=== PATIENT | male | born 1950 | race Caucasian/White ===

== ENCOUNTER 2020-02-02 08:22 | Inpatient (IN) | payer MEDICARE ==
[~2020-02-02] VITALS: Ht 182.9 cm; Wt 94.1 kg
--- NOTE | 2020-02-02 08:30 | NUR ---
pa-c is at the bedside for aSSESSMENT.
[2020-02-02] MEDS ORDERED: ONDANSETRON 2MG/ML, 2ML ONE ×2 (08:56→11:55)
[2020-02-02] MEDS ORDERED: MORPHINE SULFATE 4 MG/ML, 1ML ONE ×2 (08:56→14:32)
[2020-02-02] MEDS ORDERED: SODIUM CHLORIDE FLUSH 10ML SYR IVF ONE (09:00)
[2020-02-02] MEDS ORDERED: SODIUM CHLORIDE 0.9% 1,000ML IVBOLUS ONE (09:00)
[2020-02-02] MEDS ORDERED: THIAMINE 100 MG in SODIUM CHLORIDE 0.9% 50 ML IVPB ONE (09:00)
[2020-02-02] MEDS ORDERED: MORPHINE SULFATE 4 MG/ML, 1ML IVPush ONE (09:00)
[2020-02-02] MEDS ORDERED: ONDANSETRON 2MG/ML, 2ML IVPush ONE ×2 (09:00→12:00)
[2020-02-02 09:13] LABS: BASOPHILS % (AUTO) 1 % (0-1); EOSINOPHILS % (AUTO) 0 % (1-7); LYMPHOCYTES % (AUTO) 4 % (22-44); MEAN CORPUSCULAR HEMOGLOBIN 32.4 pg (27.5-34.5); MEAN CORPUSCULAR HGB CONC 34.4 g/dL (33.2-36.2); MEAN PLATELET VOLUME 8.3 fL (7.4-10.4); MONOCYTES % (AUTO) 7 % (2-9); NEUTROPHILS % (AUTO) 88 % (42-75); PLATELET COUNT 177 x10^3/uL (130-400); RED BLOOD COUNT 4.69 x10^6/uL (4.38-5.82); RED CELL DISTRIBUTION WIDTH 15.5 % (9.4-14.8)
[2020-02-02 09:14] LABS: MD NO
[2020-02-02 09:22] LABS: ALANINE AMINOTRANSFERASE 38 U/L (12-78); ALBUMIN 3.9 g/dL (3.4-5.0); ANION GAP 10 mmol/L (5-15); CALCIUM 8.8 mg/dL (8.5-10.1); CHLORIDE 99 mmol/L (98-107); CREATININE 1.03 mg/dL (0.7-1.3)
[2020-02-02 09:24] LABS: ALKALINE PHOSPHATASE 63 U/L (45-117); BILIRUBIN,TOTAL 3.4 mg/dL (0.2-1.0); TOTAL PROTEIN 8.4 g/dL (6.4-8.2)
[2020-02-02] MEDS ORDERED: LORazepam 2 MG/ML, 1ML IVPush ONE (10:00)
[2020-02-02] MEDS ORDERED: LORazepam 2 MG/ML, 1ML ONE (10:02)
--- NOTE | 2020-02-02 10:07 | NUR ---
pt to ct w tech
--- NOTE | 2020-02-02 10:48 | NUR ---
PT RETURNED FROM CT. IMAGING WAS UNCOMFORTABLE BUT ACCOMPLISHED. HE IS AWAITNG AN MD TO RECHECK IN REGARD TO CT.
--- NOTE | 2020-02-02 11:55 | NUR ---
pt is vomiting. md is aware
--- NOTE | 2020-02-02 11:58 | NUR ---
hospitalist is at the bedside for assessment/consult.
[2020-02-02] MEDS ORDERED: MAGNESIUM SULFATE/D5W 0 ML ONE (12:16)
[2020-02-02] MEDS ORDERED: PROMETHAZINE 25 MG/ML, 1ML IM PRN (12:30)
[2020-02-02] MEDS ORDERED: hydrALAzine 20 MG/ML, 1ML IVPush PRN (12:30)
[2020-02-02] MEDS ORDERED: DIPHENHYDRAMINE 25 MG CAPSULE PO PRN (12:30)
[2020-02-02] MEDS ORDERED: THIAMINE 200 MG, MVI ADULT 10 ML, FOLIC ACID 1 MG in D5%-0.9% NACL 1,000 ML IV SCH (12:30)
[2020-02-02] MEDS ORDERED: ONDANSETRON 2MG/ML, 2ML IVPush PRN (12:30)
[2020-02-02] MEDS ORDERED: BISACODYL 10 MG SUPP PR PRN (12:30)
[2020-02-02] MEDS ORDERED: LABETALOL 5MG/ML, 20ML IVPush PRN (12:30)
[2020-02-02] MEDS ORDERED: ENOXAPARIN 40 MG/0.4 ML ONE (12:46)
[2020-02-02] MEDS ORDERED: CHLORDIAZEPOXIDE 10 MG CAPSULE ONE (12:47)
[2020-02-02] MEDS: ENOXAPARIN 40 MG/0.4 ML SQ SCH (13:00)
[2020-02-02] MEDS: CHLORDIAZEPOXIDE 10 MG CAPSULE PO SCH ×3 (13:00→21:42)
[2020-02-02 13:27] LABS: CHLORIDE 102 mmol/L (98-107)
[2020-02-02 13:36] LABS: ALANINE AMINOTRANSFERASE 36 U/L (12-78); ALBUMIN 3.6 g/dL (3.4-5.0); ALKALINE PHOSPHATASE 55 U/L (45-117); ANION GAP 8 mmol/L (5-15); CALCIUM 8.5 mg/dL (8.5-10.1); CREATININE 0.82 mg/dL (0.7-1.3); TOTAL PROTEIN 7.7 g/dL (6.4-8.2)
--- NOTE | 2020-02-02 14:22 | NUR ---
SARA (RN) IS ASSUMING CARE OF THIS PT WHUILE I HAVE A LUNCH BREAK. SBAR WAS EXCHANGED AT THE BEDSIDE.
[2020-02-02] MEDS: morphine SULFATE 10 MG/ML, 1ML IVPush PRN ×2 (14:34→21:33)
--- NOTE | 2020-02-02 14:39 | NUR ---
BREAK RN: PT TRANSPORTED TO HOSPITAL BED W/ ASSISTANCE FROM 2 ED TECHS. PT MEDICATED FOR 10/10 PAIN. PT HYPERTENSIVE, OTHER VS WDL. RESP EVEN AND UNLABORED, NADN.
--- NOTE | 2020-02-02 18:22 | NUR ---
VERBAL SBAR EXCHANGED W SOREN SALAZAR) ON THE FLOOR FOR ADMISSION. WE WILL PREPARE
--- NOTE | 2020-02-02 18:55 | NUR ---
JEAN (RN) IS ASSUMING CARE OF THIS PT AT THIS TIME. SBAR WAS EXCHANGED AT THE BEDSIDE
--- NOTE | 2020-02-02 19:45 | NUR ---
Report from Moises maria. Did not see or evaluate this pt as he was tx to floor.
[2020-02-02 20:09] VITALS: BP 154/85
[2020-02-02] MEDS: FAMOTIDINE 20 MG TABLET PO SCH (21:00)
[2020-02-02] MEDS ORDERED: FAMOTIDINE 40 MG TABLET ONE ×2 (21:25→21:53)
[2020-02-03 01:00] VITALS: BP 151/78
[2020-02-03] MEDS: CHLORDIAZEPOXIDE 10 MG CAPSULE PO SCH ×2 (05:36→11:27)
[2020-02-03 05:40] LABS: BASOPHILS % (AUTO) 1 % (0-1); EOSINOPHILS % (AUTO) 1 % (1-7); LYMPHOCYTES % (AUTO) 11 % (22-44); MEAN CORPUSCULAR HEMOGLOBIN 31.6 pg (27.5-34.5); MEAN CORPUSCULAR HGB CONC 33.4 g/dL (33.2-36.2); MEAN PLATELET VOLUME 8.7 fL (7.4-10.4); MONOCYTES % (AUTO) 11 % (2-9); NEUTROPHILS % (AUTO) 76 % (42-75); PLATELET COUNT 140 x10^3/uL (130-400); RED BLOOD COUNT 4.37 x10^6/uL (4.38-5.82); RED CELL DISTRIBUTION WIDTH 15.6 % (9.4-14.8)
[2020-02-03] MEDS: morphine SULFATE 10 MG/ML, 1ML IVPush PRN (05:41)
[2020-02-03 05:44] LABS: MD NO
[2020-02-03] MEDS ORDERED: SODIUM PHOSPHATE 20 MMOL in SODIUM CHLORIDE 0.9% 500 ML IV ONE (07:00)
[2020-02-03 07:30] VITALS: BP 143/85
[2020-02-03 07:37] LABS: ALANINE AMINOTRANSFERASE 29 U/L (12-78); ALBUMIN 3.1 g/dL (3.4-5.0); ANION GAP 6 mmol/L (5-15); CALCIUM 8.3 mg/dL (8.5-10.1); CHLORIDE 104 mmol/L (98-107)
[2020-02-03 07:40] LABS: ALKALINE PHOSPHATASE 49 U/L (45-117); BILIRUBIN,TOTAL 2.5 mg/dL (0.2-1.0)
[2020-02-03] MEDS ORDERED: FAMOTIDINE 40 MG TABLET ONE ×2 (09:03→20:39)
[2020-02-03] MEDS: SENNA/DOCUSATE TABLET PO SCH (09:10)
[2020-02-03] MEDS: FAMOTIDINE 20 MG TABLET PO SCH ×2 (09:24→20:43)
[2020-02-03] MEDS: OXYcodone IR 5MG TABLET PO PRN ×3 (09:25→20:42)
[2020-02-03] MEDS: CEFTRIAXONE PMX 2GM/50ML 50 ML IVPB SCH (09:40)
[2020-02-03] MEDS ORDERED: FOLIC ACID 1 MG TABLET ONE (12:51)
[2020-02-03] MEDS: LACTATED RINGERS 1,000 ML IV SCH ×2 (12:54→17:40)
[2020-02-03] MEDS: ENOXAPARIN 40 MG/0.4 ML SQ SCH (12:54)
[2020-02-03] MEDS: FOLIC ACID 1 MG TABLET PO SCH (12:54)
[2020-02-03 13:01] VITALS: BP 148/81
[2020-02-03 20:26] VITALS: BP 128/79
[2020-02-03] MEDS: THIAMINE 100MG TABLET PO SCH (20:42)
[2020-02-03] MEDS: MELATONIN 5 MG TABLET PO PRN (22:23)
[2020-02-04] VITALS (14 sets, daily range): BP systolic 86–124; BP diastolic 43–76
[2020-02-04] MEDS: LACTATED RINGERS 1,000 ML IV SCH ×2 (02:18→11:37)
[2020-02-04 05:25] LABS: BASOPHILS % (AUTO) 1 % (0-1); EOSINOPHILS % (AUTO) 6 % (1-7); LYMPHOCYTES % (AUTO) 13 % (22-44); MEAN CORPUSCULAR HEMOGLOBIN 32.2 pg (27.5-34.5); MEAN CORPUSCULAR HGB CONC 33.8 g/dL (33.2-36.2); MEAN PLATELET VOLUME 8.7 fL (7.4-10.4); MONOCYTES % (AUTO) 13 % (2-9); NEUTROPHILS % (AUTO) 68 % (42-75); PLATELET COUNT 123 x10^3/uL (130-400); RED BLOOD COUNT 4.06 x10^6/uL (4.38-5.82); RED CELL DISTRIBUTION WIDTH 15.7 % (9.4-14.8)
[2020-02-04 05:29] LABS: MD NO
[2020-02-04] MEDS: OXYcodone IR 5MG TABLET PO PRN ×2 (05:32→10:30)
[2020-02-04] MEDS: LORazepam 2 MG/ML, 1ML IVPush PRN ×2 (05:32→21:25)
[2020-02-04 05:35] LABS: ALBUMIN 2.9 g/dL (3.4-5.0); ANION GAP 6 mmol/L (5-15); CALCIUM 8.4 mg/dL (8.5-10.1); CHLORIDE 104 mmol/L (98-107)
[2020-02-04 05:40] LABS: ALANINE AMINOTRANSFERASE 31 U/L (12-78); ALKALINE PHOSPHATASE 51 U/L (45-117); BILIRUBIN,TOTAL 1.3 mg/dL (0.2-1.0); TOTAL PROTEIN 6.5 g/dL (6.4-8.2)
[2020-02-04] MEDS ORDERED: DILTIAZEM 125 MG in SODIUM CHLORIDE 0.9% 100 ML IV SCH (06:00)
[2020-02-04] MEDS ORDERED: DILTIAZEM 5 MG/ML, 5ML IVPush ONE ×4 (06:00→09:30)
[2020-02-04] MEDS ORDERED: POTASSIUM CHLORIDE 20 MEQ TAB.ER.PRT PO ONE (07:00)
[2020-02-04] MEDS ORDERED: LACTATED RINGERS 500 ML IVBOLUS ONE (07:30)
[2020-02-04 08:47] LABS: TROPONIN I < 0.015 ng/mL (0.000-0.045)
[2020-02-04] MEDS ORDERED: OMNIPAQUE 350 MG/ML, 75ML BOTTLE ONE (08:49)
[2020-02-04] MEDS ORDERED: FAMOTIDINE 40 MG TABLET ONE ×2 (08:58→19:28)
[2020-02-04] MEDS: FAMOTIDINE 20 MG TABLET PO SCH ×2 (09:00→19:32)
[2020-02-04] MEDS: FOLIC ACID 1 MG TABLET PO SCH (09:10)
[2020-02-04] MEDS: THIAMINE 100MG TABLET PO SCH ×2 (09:10→19:32)
[2020-02-04] MEDS: SENNA/DOCUSATE TABLET PO SCH (09:10)
[2020-02-04] MEDS: CEFTRIAXONE PMX 2GM/50ML 50 ML IVPB SCH ×2 (09:10→11:30)
[2020-02-04] MEDS ORDERED: METOPROLOL TARTRATE 25 MG TAB PO SCH (09:30)
[2020-02-04] MEDS ORDERED: DILTIAZEM 5 MG/ML, 5ML IVPush PRN ×2 (10:00→16:00)
[2020-02-04] MEDS: METOPROLOL TARTRATE 25 MG TAB PO SCH ×3 (12:02→19:35)
[2020-02-04] MEDS: ENOXAPARIN 40 MG/0.4 ML SQ SCH (12:02)
[2020-02-04 13:40] LABS: TROPONIN I < 0.015 ng/mL (0.000-0.045)
[2020-02-04 19:26] LABS: TROPONIN I < 0.015 ng/mL (0.000-0.045)
[2020-02-04] MEDS ORDERED: LORazepam 2 MG/ML, 1ML IV PRN ×4 (22:00)
[2020-02-04] MEDS ORDERED: LORazepam 0.5MG TABLET PO PRN (22:00)
[2020-02-04] MEDS ORDERED: LORazepam 1MG TABLET PO PRN ×4 (22:00)
[2020-02-04] MEDS: LORazepam 2 MG/ML, 1ML IV PRN (23:51)
[2020-02-05 00:42] VITALS: BP 122/59
[2020-02-05] MEDS: HALOPERIDOL 5 MG/ML IM PRN ×2 (00:42→20:50)
[2020-02-05] MEDS: LORazepam 2 MG/ML, 1ML IV PRN ×2 (03:28→04:48)
[2020-02-05] MEDS: METOPROLOL TARTRATE 25 MG TAB PO SCH ×6 (03:37→20:55)
[2020-02-05] MEDS: LACTATED RINGERS 1,000 ML IV SCH (05:08)
[2020-02-05 05:31] LABS: BASOPHILS % (AUTO) 1 % (0-1); EOSINOPHILS % (AUTO) 1 % (1-7); LYMPHOCYTES % (AUTO) 10 % (22-44); MEAN CORPUSCULAR HEMOGLOBIN 31.9 pg (27.5-34.5); MEAN CORPUSCULAR HGB CONC 33.5 g/dL (33.2-36.2); MEAN PLATELET VOLUME 9.3 fL (7.4-10.4); MONOCYTES % (AUTO) 16 % (2-9); NEUTROPHILS % (AUTO) 74 % (42-75); PLATELET COUNT 139 x10^3/uL (130-400); RED CELL DISTRIBUTION WIDTH 15.9 % (9.4-14.8)
[2020-02-05 05:40] LABS: ANION GAP 6 mmol/L (5-15); CALCIUM 8.9 mg/dL (8.5-10.1); CHLORIDE 107 mmol/L (98-107)
[2020-02-05 05:44] LABS: ALANINE AMINOTRANSFERASE 36 U/L (12-78); ALKALINE PHOSPHATASE 57 U/L (45-117); BILIRUBIN,TOTAL 1.1 mg/dL (0.2-1.0); CREATININE 0.87 mg/dL (0.7-1.3); TOTAL PROTEIN 6.8 g/dL (6.4-8.2)
[2020-02-05] MEDS ORDERED: DILTIAZEM 125 MG in SODIUM CHLORIDE 0.9% 100 ML IV SCH (06:00)
[2020-02-05 06:31] LABS: MD SCAN
[2020-02-05 07:40] VITALS: BP 143/80
[2020-02-05] MEDS: FAMOTIDINE 20 MG TABLET PO SCH ×3 (09:00→20:56)
[2020-02-05] MEDS ORDERED: CHLORDIAZEPOXIDE 25 MG CAPSULE PO PRN (09:00)
[2020-02-05] MEDS ORDERED: FAMOTIDINE 40 MG TABLET ONE ×2 (09:55→20:43)
[2020-02-05] MEDS: SENNA/DOCUSATE TABLET PO SCH (09:59)
[2020-02-05] MEDS: FOLIC ACID 1 MG TABLET PO SCH (10:00)
[2020-02-05] MEDS: OXYcodone IR 5MG TABLET PO PRN (10:00)
[2020-02-05] MEDS: POTASSIUM CHLORIDE 20 MEQ, MAGNESIUM SULFATE 1 GM, MVI ADULT 10 ML, THIAMINE 200 MG, FO... IV SCH (10:26)
[2020-02-05] MEDS: CEFTRIAXONE PMX 2GM/50ML 50 ML IVPB SCH (11:38)
[2020-02-05] MEDS ORDERED: ZIPRASIDONE 20 MG INJ IM ONE ×3 (12:47→14:00)
[2020-02-05] MEDS ORDERED: CHLORDIAZEPOXIDE 25 MG CAPSULE ONE (12:47)
[2020-02-05] MEDS: ENOXAPARIN 40 MG/0.4 ML SQ SCH (12:52)
[2020-02-05] MEDS: CHLORDIAZEPOXIDE 25 MG CAPSULE PO SCH ×5 (12:53→20:56)
[2020-02-05 13:25] VITALS: BP 159/90
[2020-02-05] MEDS: LORazepam 2 MG/ML, 1ML IVPush PRN ×2 (14:33→21:01)
[2020-02-05 19:47] VITALS: BP 111/72
[2020-02-06] MEDS: LORazepam 2 MG/ML, 1ML IVPush PRN (00:34)
[2020-02-06 00:45] VITALS: BP 137/87
[2020-02-06] MEDS: METOPROLOL TARTRATE 25 MG TAB PO SCH ×3 (03:58→21:52)
[2020-02-06 07:30] VITALS: BP 144/89
[2020-02-06] MEDS: CHLORDIAZEPOXIDE 25 MG CAPSULE PO SCH ×4 (07:43→21:52)
[2020-02-06 08:59] LABS: BASOPHILS % (AUTO) 1 % (0-1); EOSINOPHILS % (AUTO) 4 % (1-7); LYMPHOCYTES % (AUTO) 10 % (22-44); MEAN CORPUSCULAR HEMOGLOBIN 32.4 pg (27.5-34.5); MEAN CORPUSCULAR HGB CONC 33.8 g/dL (33.2-36.2); MEAN PLATELET VOLUME 8.3 fL (7.4-10.4); MONOCYTES % (AUTO) 14 % (2-9); NEUTROPHILS % (AUTO) 71 % (42-75); PLATELET COUNT 148 x10^3/uL (130-400); RED BLOOD COUNT 4.05 x10^6/uL (4.38-5.82); RED CELL DISTRIBUTION WIDTH 16.2 % (9.4-14.8)
[2020-02-06] MEDS: FAMOTIDINE 20 MG TABLET PO SCH ×2 (09:00→21:52)
[2020-02-06 09:06] LABS: ALANINE AMINOTRANSFERASE 40 U/L (12-78); ALBUMIN 2.9 g/dL (3.4-5.0); ANION GAP 7 mmol/L (5-15); CALCIUM 8.5 mg/dL (8.5-10.1); CHLORIDE 106 mmol/L (98-107); CREATININE 0.84 mg/dL (0.7-1.3)
[2020-02-06 09:07] LABS: MD NO
[2020-02-06 09:10] LABS: ALKALINE PHOSPHATASE 49 U/L (45-117); BILIRUBIN,TOTAL 1.6 mg/dL (0.2-1.0); TOTAL PROTEIN 6.7 g/dL (6.4-8.2)
[2020-02-06] MEDS: PIPERACILLIN/TAZO/PMX 3.375GM 50 ML IV SCH ×3 (09:52→21:52)
[2020-02-06] MEDS ORDERED: FAMOTIDINE 40 MG TABLET ONE (10:07)
[2020-02-06] MEDS: SENNA/DOCUSATE TABLET PO SCH (10:10)
[2020-02-06] MEDS: FOLIC ACID 1 MG TABLET PO SCH (10:11)
[2020-02-06] MEDS: POTASSIUM CHLORIDE 20 MEQ, MAGNESIUM SULFATE 1 GM, MVI ADULT 10 ML, THIAMINE 200 MG, FO... IV SCH (11:26)
[2020-02-06] MEDS: ENOXAPARIN 40 MG/0.4 ML SQ SCH (12:36)
[2020-02-06] MEDS: OXYcodone IR 5MG TABLET PO PRN ×2 (13:15→21:59)
[2020-02-06 14:43] VITALS: BP 101/68
[2020-02-06 19:06] VITALS: BP_SYST 112; BP_SYST 84; BP_SYST 91; BP_DIAS 59; BP_DIAS 61; BP_DIAS 77
[2020-02-06 23:36] VITALS: BP 115/82
[2020-02-07] MEDS: PIPERACILLIN/TAZO/PMX 3.375GM 50 ML IV SCH ×4 (04:01→22:26)
[2020-02-07] MEDS: METOPROLOL TARTRATE 25 MG TAB PO SCH ×3 (04:01→21:37)
[2020-02-07 05:46] LABS: BASOPHILS % (AUTO) 1 % (0-1); EOSINOPHILS % (AUTO) 11 % (1-7); LYMPHOCYTES % (AUTO) 15 % (22-44); MEAN CORPUSCULAR HEMOGLOBIN 31.7 pg (27.5-34.5); MEAN CORPUSCULAR HGB CONC 33.2 g/dL (33.2-36.2); MEAN PLATELET VOLUME 8.4 fL (7.4-10.4); MONOCYTES % (AUTO) 18 % (2-9); NEUTROPHILS % (AUTO) 55 % (42-75); PLATELET COUNT 159 x10^3/uL (130-400); RED BLOOD COUNT 3.97 x10^6/uL (4.38-5.82); RED CELL DISTRIBUTION WIDTH 15.9 % (9.4-14.8)
[2020-02-07 05:47] LABS: MD NO
[2020-02-07 05:59] LABS: ANION GAP 4 mmol/L (5-15); CALCIUM 8.1 mg/dL (8.5-10.1); CHLORIDE 109 mmol/L (98-107)
[2020-02-07 06:01] LABS: CREATININE 1.06 mg/dL (0.7-1.3)
[2020-02-07 06:46] VITALS: BP 123/82
[2020-02-07] MEDS: SENNA/DOCUSATE TABLET PO SCH (09:00)
[2020-02-07] MEDS ORDERED: FAMOTIDINE 40 MG TABLET ONE ×2 (10:25→21:33)
[2020-02-07] MEDS: FOLIC ACID 1 MG TABLET PO SCH (10:28)
[2020-02-07] MEDS: CHLORDIAZEPOXIDE 25 MG CAPSULE PO SCH ×2 (10:28→15:34)
[2020-02-07] MEDS: OXYcodone IR 5MG TABLET PO PRN ×2 (10:28→22:33)
[2020-02-07] MEDS: FAMOTIDINE 20 MG TABLET PO SCH ×2 (10:28→21:00)
[2020-02-07 12:32] VITALS: BP 110/52
[2020-02-07] MEDS: POTASSIUM CHLORIDE 20 MEQ, MAGNESIUM SULFATE 1 GM, MVI ADULT 10 ML, THIAMINE 200 MG, FO... IV SCH (12:43)
[2020-02-07] MEDS: ENOXAPARIN 40 MG/0.4 ML SQ SCH (12:43)
[2020-02-07 14:16] VITALS: BP 115/74
[2020-02-07] MEDS: CHLORDIAZEPOXIDE 10 MG CAPSULE PO SCH (21:37)
[2020-02-07 21:38] VITALS: BP 120/76
[2020-02-08 01:13] VITALS: BP 147/79
[2020-02-08] MEDS: METOPROLOL TARTRATE 25 MG TAB PO SCH ×3 (04:48→21:10)
[2020-02-08] MEDS: PIPERACILLIN/TAZO/PMX 3.375GM 50 ML IV SCH ×4 (04:48→22:27)
[2020-02-08] MEDS: CHLORDIAZEPOXIDE 10 MG CAPSULE PO SCH ×4 (04:48→21:10)
[2020-02-08 06:59] VITALS: BP 124/76
[2020-02-08] MEDS: FOLIC ACID 1 MG TABLET PO SCH (08:56)
[2020-02-08] MEDS: SENNA/DOCUSATE TABLET PO SCH (08:56)
[2020-02-08] MEDS: FAMOTIDINE 20 MG TABLET PO SCH ×2 (08:56→21:10)
[2020-02-08] MEDS: OXYcodone IR 5MG TABLET PO PRN ×4 (08:56→22:26)
[2020-02-08] MEDS: ENOXAPARIN 40 MG/0.4 ML SQ SCH (10:54)
[2020-02-08 12:40] VITALS: BP 152/86
[2020-02-08] MEDS: POTASSIUM CHLORIDE 20 MEQ, MAGNESIUM SULFATE 1 GM, MVI ADULT 10 ML, THIAMINE 200 MG, FO... IV SCH (13:32)
[2020-02-08] MEDS: MELATONIN 5 MG TABLET PO PRN (21:10)
[2020-02-08 21:27] VITALS: BP 136/72
[2020-02-08 21:45] VITALS: BP 100/57
[2020-02-08] MEDS: ACETAMINOPHEN 325 MG TABLET PO PRN (22:26)
[2020-02-09 02:25] VITALS: BP 102/62
[2020-02-09] MEDS: ACETAMINOPHEN 325 MG TABLET PO PRN ×5 (02:35→19:54)
[2020-02-09] MEDS: OXYcodone IR 5MG TABLET PO PRN ×5 (02:35→19:54)
[2020-02-09] MEDS: METOPROLOL TARTRATE 25 MG TAB PO SCH ×3 (06:06→21:52)
[2020-02-09] MEDS: PIPERACILLIN/TAZO/PMX 3.375GM 50 ML IV SCH ×4 (06:06→22:49)
[2020-02-09] MEDS: CHLORDIAZEPOXIDE 10 MG CAPSULE PO SCH ×4 (06:06→21:52)
[2020-02-09] MEDS: SENNA/DOCUSATE TABLET PO SCH (08:35)
[2020-02-09] MEDS: FAMOTIDINE 20 MG TABLET PO SCH ×2 (08:37→21:52)
[2020-02-09] MEDS: FOLIC ACID 1 MG TABLET PO SCH (08:37)
[2020-02-09] MEDS: THIAMINE 100MG TABLET PO SCH (08:40)
[2020-02-09 09:58] VITALS: BP 107/71
[2020-02-09] MEDS: ENOXAPARIN 40 MG/0.4 ML SQ SCH (12:30)
[2020-02-09 15:59] VITALS: BP 105/65
[2020-02-09 19:39] VITALS: BP 105/53
[2020-02-10 00:36] VITALS: BP 106/66
[2020-02-10] MEDS: PIPERACILLIN/TAZO/PMX 3.375GM 50 ML IV SCH ×4 (04:42→23:12)
[2020-02-10] MEDS: OXYcodone IR 5MG TABLET PO PRN ×4 (04:43→20:27)
[2020-02-10] MEDS: METOPROLOL TARTRATE 25 MG TAB PO SCH ×3 (04:43→20:27)
[2020-02-10] MEDS: ACETAMINOPHEN 325 MG TABLET PO PRN ×2 (04:43→09:13)
[2020-02-10 04:45] VITALS: BP 133/78
[2020-02-10] MEDS: CHLORDIAZEPOXIDE 10 MG CAPSULE PO SCH ×2 (05:35→10:37)
[2020-02-10 07:23] VITALS: BP 114/66
[2020-02-10] MEDS: SENNA/DOCUSATE TABLET PO SCH (09:00)
[2020-02-10] MEDS: THIAMINE 100MG TABLET PO SCH (09:12)
[2020-02-10] MEDS: FAMOTIDINE 20 MG TABLET PO SCH ×2 (09:12→20:27)
[2020-02-10] MEDS: FOLIC ACID 1 MG TABLET PO SCH (09:12)
[2020-02-10] MEDS ORDERED: LORazepam 1MG TABLET PO PRN (12:00)
[2020-02-10] MEDS: ENOXAPARIN 40 MG/0.4 ML SQ SCH (12:01)
[2020-02-10 13:52] VITALS: BP 116/65
[2020-02-10 19:50] VITALS: BP 123/72
[2020-02-11] MEDS: OXYcodone IR 5MG TABLET PO PRN ×6 (00:31→21:27)
[2020-02-11 03:38] VITALS: BP_SYST 118; BP_SYST 129; BP_DIAS 72; BP_DIAS 73
[2020-02-11 05:23] VITALS: BP 142/93
[2020-02-11] MEDS: METOPROLOL TARTRATE 25 MG TAB PO SCH ×3 (05:23→21:27)
[2020-02-11] MEDS: PIPERACILLIN/TAZO/PMX 3.375GM 50 ML IV SCH ×4 (05:23→23:18)
[2020-02-11] MEDS: FOLIC ACID 1 MG TABLET PO SCH (08:59)
[2020-02-11] MEDS: FAMOTIDINE 20 MG TABLET PO SCH ×2 (08:59→21:27)
[2020-02-11] MEDS: THIAMINE 100MG TABLET PO SCH (08:59)
[2020-02-11] MEDS: SENNA/DOCUSATE TABLET PO SCH (09:00)
[2020-02-11 09:44] VITALS: BP 108/67
[2020-02-11] MEDS: ENOXAPARIN 40 MG/0.4 ML SQ SCH (12:02)
[2020-02-11 13:19] VITALS: BP 100/64
[2020-02-11 13:50] VITALS: BP 136/78
[2020-02-11 20:04] VITALS: BP 114/74
[2020-02-12 00:22] VITALS: BP 121/72
[2020-02-12] MEDS: OXYcodone IR 5MG TABLET PO PRN ×5 (04:24→22:03)
[2020-02-12 05:09] VITALS: BP 114/73
[2020-02-12] MEDS: PIPERACILLIN/TAZO/PMX 3.375GM 50 ML IV SCH ×4 (05:10→23:01)
[2020-02-12] MEDS: METOPROLOL TARTRATE 25 MG TAB PO SCH ×3 (05:10→22:03)
[2020-02-12] MEDS: FOLIC ACID 1 MG TABLET PO SCH (08:19)
[2020-02-12] MEDS: FAMOTIDINE 20 MG TABLET PO SCH ×2 (08:19→22:03)
[2020-02-12] MEDS: THIAMINE 100MG TABLET PO SCH (08:19)
[2020-02-12] MEDS: SENNA/DOCUSATE TABLET PO SCH (08:25)
[2020-02-12 09:40] VITALS: BP 120/58
[2020-02-12] MEDS: ENOXAPARIN 40 MG/0.4 ML SQ SCH (12:13)
[2020-02-12 14:55] VITALS: BP 100/66
[2020-02-12 19:03] VITALS: BP 102/61
[2020-02-12 22:01] VITALS: BP 116/71
[2020-02-13 01:41] VITALS: BP 101/58
[2020-02-13] MEDS: OXYcodone IR 5MG TABLET PO PRN ×5 (02:31→20:46)
[2020-02-13 05:18] VITALS: BP 118/71
[2020-02-13] MEDS: METOPROLOL TARTRATE 25 MG TAB PO SCH ×3 (05:19→22:33)
[2020-02-13] MEDS: PIPERACILLIN/TAZO/PMX 3.375GM 50 ML IV SCH ×4 (05:19→22:33)
[2020-02-13] MEDS: THIAMINE 100MG TABLET PO SCH (09:00)
[2020-02-13] MEDS: SENNA/DOCUSATE TABLET PO SCH (09:00)
[2020-02-13] MEDS: FOLIC ACID 1 MG TABLET PO SCH (09:09)
[2020-02-13] MEDS: FAMOTIDINE 20 MG TABLET PO SCH ×2 (09:09→20:46)
[2020-02-13 09:25] VITALS: BP 120/70
[2020-02-13] MEDS: ENOXAPARIN 40 MG/0.4 ML SQ SCH (13:10)
[2020-02-13 13:26] VITALS: BP 108/71
[2020-02-13 17:43] LABS: ANION GAP 7 mmol/L (5-15); CALCIUM 9.2 mg/dL (8.5-10.1); CHLORIDE 106 mmol/L (98-107); CREATININE 1.33 mg/dL (0.7-1.3)
[2020-02-13 17:51] LABS: BASOPHILS % (AUTO) 1 % (0-1); EOSINOPHILS % (AUTO) 7 % (1-7); LYMPHOCYTES % (AUTO) 20 % (22-44); MEAN CORPUSCULAR HEMOGLOBIN 31.5 pg (27.5-34.5); MEAN CORPUSCULAR HGB CONC 33.3 g/dL (33.2-36.2); MEAN PLATELET VOLUME 8.9 fL (7.4-10.4); MONOCYTES % (AUTO) 14 % (2-9); NEUTROPHILS % (AUTO) 57 % (42-75); PLATELET COUNT 404 x10^3/uL (130-400); RED BLOOD COUNT 4.19 x10^6/uL (4.38-5.82); RED CELL DISTRIBUTION WIDTH 15.6 % (9.4-14.8)
[2020-02-13 17:53] LABS: MD NO
[2020-02-13 18:42] VITALS: BP 111/73
[2020-02-13 22:32] VITALS: BP 104/62
[2020-02-14 00:48] VITALS: BP 104/63
[2020-02-14 05:10] VITALS: BP 111/60
[2020-02-14] MEDS: OXYcodone IR 5MG TABLET PO PRN ×3 (05:11→15:04)
[2020-02-14] MEDS: PIPERACILLIN/TAZO/PMX 3.375GM 50 ML IV SCH ×2 (05:11→11:00)
[2020-02-14] MEDS: METOPROLOL TARTRATE 25 MG TAB PO SCH ×2 (05:12→13:26)
[2020-02-14] MEDS ORDERED: SODIUM CHLORIDE 0.9% 1,000 ML IV SCH (08:30)
[2020-02-14] MEDS: SENNA/DOCUSATE TABLET PO SCH (09:00)
[2020-02-14 09:40] VITALS: BP 128/71
[2020-02-14] MEDS: FAMOTIDINE 20 MG TABLET PO SCH (11:00)
[2020-02-14] MEDS: FOLIC ACID 1 MG TABLET PO SCH (11:00)
[2020-02-14] MEDS: THIAMINE 100MG TABLET PO SCH (11:00)
[2020-02-14] MEDS: ENOXAPARIN 40 MG/0.4 ML SQ SCH (13:21)
[2020-02-14 13:49] VITALS: BP 108/68
[2020-02-14] MEDS ORDERED: METO25TA35 PO (14:42)
[2020-02-14] MEDS ORDERED: FAMO20TA7 PO (14:42)
[2020-02-14] MEDS ORDERED: THIA100T67 PO (14:42)
[2020-02-14] MEDS ORDERED: ACET325T26 PO (14:42)
== END 2020-02-14 17:15 | DRG 177 ==
LOC: ED 08:56 → EDIP 12:11 → 5SO 19:37 → 3N 02-07 22:02
PROVIDERS: ADMIT Hospitalist; ATTEND Hospitalist
DX: J15.6 Pneumonia due to other Gram-negative bacteria (principal); S32.402A Unspecified fracture of left acetabulum, initial encounter for closed fracture; G93.41 Metabolic encephalopathy; S32.512A Fracture of superior rim of left pubis, initial encounter for closed fracture; E87.1 Hypo-osmolality and hyponatremia; F10.231 Alcohol dependence with withdrawal delirium; D68.69 Other thrombophilia; I48.92 Unspecified atrial flutter; I48.0 Paroxysmal atrial fibrillation; R73.9 Hyperglycemia, unspecified; W18.39XA Other fall on same level, initial encounter; Y93.89 Activity, other specified; Y92.098 Other place in other non-institutional residence as the place of occurrence of the external cause; Y99.8 Other external cause status
CPT/HCPCS: 36415; 71045; 71275; 80048; 80053; 80320; 83735; 84100; 84443; 84484; 85025; 93005; 93306; 93970; 96368; 96374; 96375; 99285; G0378; J0696; J1650; J2405; J2543; J3411; J3475; J3480; J3486; J7042; J7120; Q9967; G0480; J1630; J2060; J2270; J7030; J7040

== ENCOUNTER 2020-05-29 22:10 | Emergency (ER) | payer MEDICARE ==
[~2020-05-29] VITALS: Ht 182.9 cm; Wt 92.6 kg
[~2020-05-29 22:10] MED LIST: ACET325T26 PO; FAMO20TA7 PO; METO25TA35 PO; THIA100T67 PO
[2020-05-29] MEDS ORDERED: MORPHINE SULFATE 4 MG/ML, 1ML ONE (22:47)
[2020-05-29] MEDS ORDERED: ONDANSETRON 2MG/ML, 2ML ONE (22:47)
[2020-05-29] MEDS ORDERED: ASPIRIN 81 MG TABLET EC ONE (22:48)
[2020-05-29] MEDS ORDERED: MORPHINE SULFATE 4 MG/ML, 1ML IVPush PRN (23:00)
[2020-05-29] MEDS ORDERED: ONDANSETRON 2MG/ML, 2ML IVPush ONE (23:00)
[2020-05-29] MEDS ORDERED: ASPIRIN 81 MG TABLET CHEW PO ONE (23:00)
[2020-05-29] MEDS ORDERED: SODIUM CHLORIDE FLUSH 10ML SYR IVF ONE (23:00)
[2020-05-29] MEDS ORDERED: ASPIRIN 81 MG TABLET CHEW ONE (23:06)
[2020-05-29 23:13] LABS: BASOPHILS % (AUTO) 1 % (0-1); EOSINOPHILS % (AUTO) 8 % (1-7); LYMPHOCYTES % (AUTO) 16 % (22-44); MEAN CORPUSCULAR HEMOGLOBIN 30.5 pg (27.5-34.5); MEAN CORPUSCULAR HGB CONC 33.3 g/dL (33.2-36.2); MEAN PLATELET VOLUME 8.9 fL (7.4-10.4); MONOCYTES % (AUTO) 9 % (2-9); NEUTROPHILS % (AUTO) 66 % (42-75); PLATELET COUNT 237 x10^3/uL (130-400); RED BLOOD COUNT 5.04 x10^6/uL (4.38-5.82)
[2020-05-29 23:15] LABS: MD NO
--- NOTE | 2020-05-29 23:18 | NUR ---
PATIENT TOLERATED IV START WELL, LABS DRAWN AND SENT. PT UPDATED ON PLAN OF CARE. MEDICATIONS GIVEN PER MAR. WILL CONTINUE TO MONITOR.
[2020-05-29 23:26] LABS: ALANINE AMINOTRANSFERASE 112 U/L (12-78); ALBUMIN 3.8 g/dL (3.4-5.0); ANION GAP 8 mmol/L (5-15); CALCIUM 9.5 mg/dL (8.5-10.1); CHLORIDE 103 mmol/L (98-107)
[2020-05-29 23:30] LABS: ALKALINE PHOSPHATASE 108 U/L (45-117); TOTAL PROTEIN 8.2 g/dL (6.4-8.2); TROPONIN I < 0.015 ng/mL (0.000-0.045)
[2020-05-29] MEDS ORDERED: LABETALOL 5MG/ML, 20ML IVPush ONE (23:30)
[2020-05-30] MEDS ORDERED: LABETALOL 5MG/ML, 20ML IVPush ONE
--- NOTE | 2020-05-30 00:05 | NUR ---
PATIENT REFUSED IV LABETALOL. PROVIDER AWARE.
--- NOTE | 2020-05-30 00:11 | NUR ---
PATIENT STATED THAT HE DID NOT WANT TO STAY IN THE HOSPITAL FOR ADMISSION. PATIENT IS BEING GIVEN TIME TO CONSULT WITH REGARDING DECISION. PATIENT HAS BEEN MADE AWARE OF POSSIBLE COMPLICATIONS, PT VERBALIZED UNDERSTANDING. WILL FOLLOW UP FOR FINAL DECISION.
--- NOTE | 2020-05-30 00:48 | NUR ---
PATIENT HAS MADE INFORMED DECISION TO LEAVE HOSPITAL AMA. PATIENT SIGNED PAPERWORK. VERBALIZED UNDERSTANDING OF POSSIBLE COMPLICATIONS, AND POSSIBLE NEGATIVE OUTCOMES. PATIENT AMBULATORY TO DISCHARGE DESK WTIHOUT COMPLICATIONS, WITH BELONGINGS. VITAL SIGNS STABLE, NAD.
[2020-05-30 00:49] VITALS: BP 168/87
== END 2020-05-30 00:51 | disposition left against medical advice (07) ==
LOC: ED 05-30 00:40
DX: R07.89 Other chest pain (principal); I16.9 Hypertensive crisis, unspecified; R11.0 Nausea
CPT/HCPCS: 36415; 71045; 80053; 80320; 84484; 85025; 93005; 96374; 96375; 99285; J2270; J2405; G0480

== ENCOUNTER 2020-06-01 11:23 | Observation (INO) | payer MEDICARE ==
[~2020-06-01] VITALS: Ht 182.9 cm; Wt 91.6 kg
--- NOTE | 2020-06-01 11:46 | NUR ---
PT SITTING ON [facility], MONITORS IN PLACE. AT BS
[2020-06-01] MEDS ORDERED: NITROGLYCERIN SINGLE TAB 0.4 MG SL ONE (11:48)
[2020-06-01] MEDS: NITROGLYCERIN SINGLE TAB 0.4 MG SL PRN ×3 (11:59→12:15)
[2020-06-01 12:18] LABS: BASOPHILS % (AUTO) 1 % (0-1); EOSINOPHILS % (AUTO) 3 % (1-7); LYMPHOCYTES % (AUTO) 14 % (22-44); MEAN CORPUSCULAR HEMOGLOBIN 30.5 pg (27.5-34.5); MEAN CORPUSCULAR HGB CONC 33.5 g/dL (33.2-36.2); MEAN PLATELET VOLUME 8.8 fL (7.4-10.4); MONOCYTES % (AUTO) 15 % (2-9); NEUTROPHILS % (AUTO) 67 % (42-75); PLATELET COUNT 222 x10^3/uL (130-400); RED BLOOD COUNT 4.59 x10^6/uL (4.38-5.82); RED CELL DISTRIBUTION WIDTH 16.4 % (9.4-14.8)
[2020-06-01] MEDS ORDERED: MORPHINE SULFATE 4 MG/ML, 1ML ONE ×3 (12:21→13:01)
[2020-06-01 12:24] LABS: MD NO
[2020-06-01 12:25] LABS: ALBUMIN 3.4 g/dL (3.4-5.0); ANION GAP 5 mmol/L (5-15); CALCIUM 8.4 mg/dL (8.5-10.1); CHLORIDE 108 mmol/L (98-107)
[2020-06-01] MEDS: MORPHINE SULFATE 4 MG/ML, 1ML IVPush PRN ×2 (12:28→13:03)
[2020-06-01 12:30] LABS: ALANINE AMINOTRANSFERASE 72 U/L (12-78); ALKALINE PHOSPHATASE 90 U/L (45-117); BILIRUBIN,TOTAL 0.7 mg/dL (0.2-1.0); CREATININE 0.97 mg/dL (0.7-1.3); TOTAL PROTEIN 7.3 g/dL (6.4-8.2); TROPONIN I < 0.015 ng/mL (0.000-0.045)
--- NOTE | 2020-06-01 13:03 | NUR ---
PT MEDICATED PER EMAR. STATES PAIN HAS DECREASED. PT SITTING ON GURNEY. NAD. NO NEEDS AT THIS TIME
--- NOTE | 2020-06-01 13:40 | NUR ---
BREAK RN NOTE: REPORT RECEIVED FROM [employer] FOREMAN. PT IS A&O, SPEAKING WITH HOSPITALIST AT THIS TIME. PT IS NSR ON [employer] HELPER REPAIR WTIH NO ECTOPY. REPORT GIVEN TO RECEIVING CARDIAC WELLNESS SPA MANAGER KATIE, PT AWAITING TRANSPORT AT THIS TIME.
[2020-06-01] MEDS ORDERED: FAMOTIDINE PO (13:45)
[2020-06-01] MEDS ORDERED: ASPI-963 PO (13:45)
--- NOTE | 2020-06-01 13:45 | NUR ---
MED REC COMPLETED. PT A&O, RESPS EVEN AND UNLABORED, NADN. PT TRANSPORTED TO [facility] WITHOUT INCIDENT.
[2020-06-01 13:55] VITALS: BP 146/59
[2020-06-01] MEDS ORDERED: morphine SULFATE 10 MG/ML, 1ML IV PRN (14:00)
[2020-06-01] MEDS ORDERED: ACETAMINOPHEN 325 MG TABLET PO PRN (14:00)
[2020-06-01] MEDS ORDERED: ENOXAPARIN 40 MG/0.4 ML SQ SCH (14:00)
[2020-06-01] MEDS ORDERED: NITROGLYCERIN 0.4 MG/SPRAY SL PRN ×2 (14:00→18:30)
[2020-06-01] MEDS ORDERED: HYDROcodone/APAP 5/325 TABLET PO PRN (14:00)
[2020-06-01 14:45] LABS: CHOLESTEROL, TOTAL 189 mg/dL (140-239); HDL CHOL % 50 % (26-37); HDL CHOLESTEROL (DIRECT) 94 mg/dL (40-60); LDL CHOLESTEROL,CALCULATED 82 mg/dL (54-169); LDL/HDL RATIO 0.9 (0.5-3.0); TRIGLYCERIDES 65 mg/dL (50-200); TROPONIN I < 0.015 ng/mL (0.000-0.045); VLDL CHOLESTEROL 13 mg/dL (0-25)
[2020-06-01 15:19] VITALS: BP 146/59
[2020-06-01 18:00] VITALS: BP 98/63
[2020-06-01] MEDS ORDERED: NITROGLYCERIN 0.4 MG BOTTLE (25 TABS) SL PRN (18:30)
[2020-06-01 19:58] LABS: TROPONIN I < 0.015 ng/mL (0.000-0.045)
[2020-06-01 20:00] VITALS: BP 123/69
[2020-06-02 01:24] VITALS: BP 123/78
[2020-06-02 03:03] LABS: ANION GAP 4 mmol/L (5-15); CALCIUM 8.5 mg/dL (8.5-10.1); CHLORIDE 113 mmol/L (98-107); CREATININE 0.89 mg/dL (0.7-1.3)
[2020-06-02 03:11] LABS: TROPONIN I < 0.015 ng/mL (0.000-0.045)
[2020-06-02 07:14] VITALS: BP 129/83
[2020-06-02] MEDS ORDERED: REGADENOSON 0.4 MG/5 ML SYRINGE ONE (09:51)
[2020-06-02 12:25] VITALS: BP 118/76
[2020-06-02] MEDS ORDERED: IBUP-1221 PO (13:11)
[2020-06-02] MEDS ORDERED: OMEP-110 PO (13:11)
[2020-06-02] MEDS ORDERED: NITR0.4T28 SL (13:11)
[2020-06-02] MEDS ORDERED: ATOR20TA PO (13:12)
[2020-06-02] MEDS ORDERED: IBUPROFEN 200 MG TABLET ONE (13:24)
[2020-06-02] MEDS ORDERED: IBUPROFEN 200 MG TABLET PO ONE (13:30)
== END 2020-06-02 14:00 | disposition home or self-care (01) ==
LOC: ED 12:27 → INTOOBSV 13:14 → EDIP 13:14 → SUATTDRO 13:20 → 5SO 13:48 → DCLOUNGE 06-02 13:53
PROVIDERS: ADMIT Hospitalist; ATTEND Hospitalist
DX: R07.89 Other chest pain (principal); I48.91 Unspecified atrial fibrillation; I10 Essential (primary) hypertension; K21.9 Gastro-esophageal reflux disease without esophagitis; Z79.82 Long term (current) use of aspirin; Z79.899 Other long term (current) drug therapy; Z72.89 Other problems related to lifestyle
CPT/HCPCS: 36415; 71045; 78452; 80048; 80053; 80061; 80320; 84484; 85025; 93005; 93017; 96372; 96374; 96376; 99285; A9502; G0378; J1650; J2270; J2785; G0480

== ENCOUNTER 2020-06-03 05:54 | Emergency (ER) | payer MEDICARE ==
[~2020-06-03] VITALS: Ht 177.8 cm; Wt 91.7 kg
[~2020-06-03 05:54] MED LIST changes: +ASPI-963 PO; +ATOR20TA PO; +FAMOTIDINE PO; +IBUP-1221 PO; +NITR0.4T28 SL; +OMEP-110 PO
--- NOTE | 2020-06-03 06:06 | NUR ---
ATTEMPTED TO GET AN EKG ON PATIENT. PATIENT IS VERY ANXIOUS STATED "I'LL JUST LEAVE AND GO SEE MY PRIMARY IF I HAVE TO HAVE AN EKG.
[2020-06-03] MEDS ORDERED: KETOROLAC 30 MG/1 ML ONE (06:17)
[2020-06-03] MEDS ORDERED: FAMOTIDINE 20 MG/2 ML IVPush ONE (06:30)
[2020-06-03] MEDS ORDERED: KETOROLAC 30 MG/1 ML IVPush ONE (06:30)
--- NOTE | 2020-06-03 06:30 | NUR ---
Medicated patient per mar. Patient states pain is worsening. CT arrived to take patient and he refused stating to them that he was in too much pain at this time. Spoke with Dr. Mo; ordered PO meds.
[2020-06-03] MEDS ORDERED: FAMOTIDINE 20 MG/2 ML ONE (06:33)
--- NOTE | 2020-06-03 06:40 | NUR ---
Patient presents to ER c/o left side CP. Patient states it started approx 6 months ago and has progressively worsened. Over the last 5 days it has become unbearable. Patient has been seen over the last couple days for the same. Denied EKG in triage. Patient is in obvious discomfort; appears anxious. Respirations even and unlabored.
[2020-06-03] MEDS ORDERED: HYDROcodone/APAP 5/325 TABLET ONE (06:45)
--- NOTE | 2020-06-03 06:45 | NUR ---
Attempted to medicate patient with PO meds; patient in CT.
[2020-06-03 06:51] LABS: BASOPHILS % (AUTO) 0 % (0-1); EOSINOPHILS % (AUTO) 13 % (1-7); LYMPHOCYTES % (AUTO) 23 % (22-44); MEAN CORPUSCULAR HEMOGLOBIN 30.9 pg (27.5-34.5); MEAN CORPUSCULAR HGB CONC 33.7 g/dL (33.2-36.2); MEAN PLATELET VOLUME 8.6 fL (7.4-10.4); MONOCYTES % (AUTO) 19 % (2-9); NEUTROPHILS % (AUTO) 45 % (42-75); PLATELET COUNT 239 x10^3/uL (130-400); RED CELL DISTRIBUTION WIDTH 16.3 % (9.4-14.8)
[2020-06-03] MEDS ORDERED: OMNIPAQUE 350 MG/ML, 100ML BOTTLE ONE (06:53)
--- NOTE | 2020-06-03 06:54 | NUR ---
Report recieved from MARIA LUISA rn
--- NOTE | 2020-06-03 06:57 | NUR ---
PT BACK FROM CT, RESTING IN BED, CALL LIGHT IN REACH
[2020-06-03 06:59] LABS: ALBUMIN 3.8 g/dL (3.4-5.0); ANION GAP 4 mmol/L (5-15); CALCIUM 9.3 mg/dL (8.5-10.1); CHLORIDE 108 mmol/L (98-107); CREATININE 0.94 mg/dL (0.7-1.3)
[2020-06-03] MEDS ORDERED: HYDROcodone/APAP 5/325 TABLET PO ONE (07:00)
[2020-06-03 07:02] LABS: TROPONIN I < 0.015 ng/mL (0.000-0.045)
[2020-06-03 07:18] LABS: MD SCAN
[2020-06-03] MEDS ORDERED: MAALOX/HYOSCYAMINE/LIDOCAINE 45 ML BTL ONE (08:13)
[2020-06-03] MEDS ORDERED: PANTOPRAZOLE 40 MG IV ONE (08:13)
[2020-06-03 08:19] VITALS: BP 139/76
--- NOTE | 2020-06-03 08:20 | NUR ---
POC AND DC INSTRUCTIONS DISCUSSED
[2020-06-03] MEDS ORDERED: PANTOPRAZOLE 40 MG IV IVPush ONE (08:30)
[2020-06-03] MEDS ORDERED: MAALOX/HYOSCYAMINE/LIDOCAINE 45 ML BTL PO ONE (08:30)
== END 2020-06-03 08:56 | disposition home or self-care (01) ==
LOC: ED 06:26
DX: K29.20 Alcoholic gastritis without bleeding (principal); R07.89 Other chest pain; I10 Essential (primary) hypertension; Z87.891 Personal history of nicotine dependence
CPT/HCPCS: 36415; 71275; 80048; 82040; 83880; 84484; 85025; 96374; 96375; 99285; C9113; J1885; Q9967